=== PATIENT | male | born 1945 | race Caucasian/White ===

== ENCOUNTER 2025-07-28 20:50 | Emergency (ER) | payer OTHER, MEDICARE ==
[2025-07-28 21:48] LABS: BASOPHILS ABSOLUTE AUTO 0.0 x10^3/uL (0.0-0.2); BASOPHILS PERCENT AUTO 0.0 % (0.2-1.2); EOSINOPHILS ABSOLUTE AUTO 0.0 x10^3/uL (0.0-0.5); EOSINOPHILS PERCENT AUTO 0.3 % (0.0-4.0); IMMATURE GRAN ABSOLUTE AUTO 0.05 x10^3/uL (0.00-0.07); IMMATURE GRAN PERCENT AUTO 0.30 % (0.00-0.43); LYMPHOCYTES ABSOLUTE AUTO 1.2 x10^3/uL (1.0-4.8); LYMPHOCYTES PERCENT AUTO 7.9 % (25.0-50.0); MONOCYTES ABSOLUTE AUTO 2.4 x10^3/uL (0.0-0.8); MONOCYTES PERCENT AUTO 15.2 % (2.0-11.0); NEUTROPHILS ABSOLUTE AUTO 11.9 x10^3/uL (1.8-7.7); NEUTROPHILS PERCENT AUTO 76.3 % (50.0-80.0); PLATELET COUNT,PLT 120 x10^3/uL (130-400); RED BLOOD CELL COUNT 4.19 x10^6/uL (4.5-6.0); WHITE BLOOD CELL COUNT,WBC 15.6 x10^3/uL (4.0-10.0)
[2025-07-28 22:07] LABS: A/G RATIO 0.72; BILIRUBIN TOTAL 0.9 mg/dL (0.2-1.0); BLOOD UREA NITROGEN,BUN 18 mg/dL (7-18); CARBON DIOXIDE,CO2 29 mmol/L (21-32); CHLORIDE,CL 100 mmol/L (98-107); CREATININE 1.2 mg/dL (0.70-1.30); EST CRCL DRUG DOSING (CG) 50.55 mL/min; GLUCOSE RANDOM 130 mg/dL (70-99); POTASSIUM,K 4.6 mmol/L (3.5-5.1); PROTEIN TOTAL,TP 6.7 g/dL (6.4-8.2); SODIUM,NA 137 mmol/L (136-145)
[2025-07-28 22:10] LABS: ESTIMATED GFR 60 mL/min (>=60)
[2025-07-28 22:17] LABS: ALANINE AMINOTRANSFERASE,ALT < 6 U/L (16-63); ASPARTATE AMNIOTRANSFERASE,AST 11 U/L (15-37)
[2025-07-28] MEDS ORDERED: Sodium Chloride 0.9% 10 ML Syringe FLUSH PRN (23:08)
== END 2025-07-29 00:33 | disposition short-term general hospital (02) ==
LOC: VM.ED 20:50
DX: T85.520A Displacement of bile duct prosthesis, initial encounter (principal); K81.0 Acute cholecystitis; Z88.8 Allergy status to other drugs, medicaments and biological substances; Z88.0 Allergy status to penicillin
CPT/HCPCS: 36415; 74176; 80053; 85025; 96374; 99284; 99285-25; J0696